=== PATIENT | male | born 1945 | race Caucasian/White ===

== ENCOUNTER → 2017-12-11 | Outpatient (CLI) | payer MEDICARE, BC ==
[~2017-12-11] MED LIST: AMLODIPINE10 MG PO; ASPIRIN E.C. 8181 MG PO; CALCIUM 600-D 61 TAB PO; CALCIUM500 MG PO; CIALIS10 MG PO; COZAAR100 MG PO; GLUCOSAMINE & C1 CA1 PO; GLUCOSAMINE CHO1 CA1 PO; HCTZ 25MG TAB25 MG PO; IBU400 MG PO; LASIX20 MG PO; METFORMIN500 MG PO; NORCO 325 MG-51 TAB PO; PROTONIX40 MG PO; TYLENOL 500MG500 MG PO; ULTRAM 50MG TAB50 MG PO
== END ==
LOC: COL.RAD 12:56
DX: M47.816 Spondylosis without myelopathy or radiculopathy, lumbar region (principal); M99.73 Connective tissue and disc stenosis of intervertebral foramina of lumbar region; M48.061 Spinal stenosis, lumbar region without neurogenic claudication; M51.36 Other intervertebral disc degeneration, lumbar region

== ENCOUNTER → 2018-02-03 | Outpatient (CLI) | payer MEDICARE, BC | LOC: MHCPAIN 08:09 | DX: G89.29 Other chronic pain (principal); M47.817 Spondylosis without myelopathy or radiculopathy, lumbosacral region; M54.16 Radiculopathy, lumbar region; M53.3 Sacrococcygeal disorders, not elsewhere classified; M48.061 Spinal stenosis, lumbar region without neurogenic claudication | CPT/HCPCS: G0463 ==

== ENCOUNTER → 2018-02-04 | Outpatient (CLI) | payer MEDICARE, BC | LOC: MHCPAIN 10:47 | DX: M47.817 Spondylosis without myelopathy or radiculopathy, lumbosacral region (principal); M54.16 Radiculopathy, lumbar region | CPT/HCPCS: J1040; Q9967 ==

== ENCOUNTER → 2018-02-17 | Outpatient (CLI) | payer MEDICARE, BC | LOC: MHCPAIN 07:47 | DX: G89.29 Other chronic pain (principal); M47.817 Spondylosis without myelopathy or radiculopathy, lumbosacral region; M54.16 Radiculopathy, lumbar region; M53.3 Sacrococcygeal disorders, not elsewhere classified; M48.061 Spinal stenosis, lumbar region without neurogenic claudication | CPT/HCPCS: G0463 ==

== ENCOUNTER → 2018-02-25 | Outpatient (CLI) | payer MEDICARE, BC | LOC: MHCPAIN 08:54 | DX: M47.817 Spondylosis without myelopathy or radiculopathy, lumbosacral region (principal) | CPT/HCPCS: J1100; Q9967 ==

== ENCOUNTER → 2018-04-01 | Outpatient (CLI) | payer MEDICARE, BC | LOC: MHCPAIN 09:48 | DX: M47.817 Spondylosis without myelopathy or radiculopathy, lumbosacral region (principal); M54.16 Radiculopathy, lumbar region | CPT/HCPCS: J1040; Q9967 ==

== ENCOUNTER 2018-04-23 08:00 | Outpatient (RCR) | payer MEDICARE, BC | END 2018-05-09 | disposition home or self-care (01) | LOC: WSPT | DX: M48.061 Spinal stenosis, lumbar region without neurogenic claudication (principal); M54.16 Radiculopathy, lumbar region; M47.817 Spondylosis without myelopathy or radiculopathy, lumbosacral region; M53.3 Sacrococcygeal disorders, not elsewhere classified; G89.29 Other chronic pain | CPT/HCPCS: G8978-GP; G8979-GP ==

== ENCOUNTER → 2018-05-10 | Outpatient (CLI) | payer MEDICARE, BC | LOC: MHCPAIN 08:13 | DX: G89.29 Other chronic pain (principal); M47.817 Spondylosis without myelopathy or radiculopathy, lumbosacral region; M54.16 Radiculopathy, lumbar region; M53.3 Sacrococcygeal disorders, not elsewhere classified; M48.061 Spinal stenosis, lumbar region without neurogenic claudication | CPT/HCPCS: G0463 ==

== ENCOUNTER 2018-06-17 08:00 | Outpatient (RCR) | payer MEDICARE, BC | END 2018-06-23 13:40 | disposition home or self-care (01) | LOC: WSPT 08:00 | DX: M48.061 Spinal stenosis, lumbar region without neurogenic claudication (principal); M54.16 Radiculopathy, lumbar region; M47.817 Spondylosis without myelopathy or radiculopathy, lumbosacral region; M53.3 Sacrococcygeal disorders, not elsewhere classified; G89.29 Other chronic pain ==

== ENCOUNTER → 2018-08-04 | Outpatient (CLI) | payer MEDICARE, BC | LOC: MHCPAIN 08:08 | DX: G89.29 Other chronic pain (principal); M47.817 Spondylosis without myelopathy or radiculopathy, lumbosacral region; M54.16 Radiculopathy, lumbar region; M53.3 Sacrococcygeal disorders, not elsewhere classified; M48.061 Spinal stenosis, lumbar region without neurogenic claudication | CPT/HCPCS: G0463 ==

== ENCOUNTER → 2018-11-24 | Outpatient (CLI) | payer MEDICARE, BC | LOC: ZCOL.LAB 17:33 | DX: Z01.812 Encounter for preprocedural laboratory examination (principal) ==

== ENCOUNTER → 2019-01-13 | Outpatient (CLI) | payer MEDICARE, BC | LOC: COL.RAD 09:50 | DX: M48.062 Spinal stenosis, lumbar region with neurogenic claudication (principal); M51.36 Other intervertebral disc degeneration, lumbar region ==

== ENCOUNTER 2019-02-24 08:00 | Outpatient (RCR) | payer MEDICARE, BC | END 2019-03-10 15:24 | disposition home or self-care (01) | LOC: MKS.ESL.PT 08:00 | DX: M48.062 Spinal stenosis, lumbar region with neurogenic claudication (principal); M96.1 Postlaminectomy syndrome, not elsewhere classified ==

== ENCOUNTER → 2019-06-16 | Outpatient (CLI) | payer MEDICARE, BC | LOC: COL.RAD 08:18 | DX: Z13.6 Encounter for screening for cardiovascular disorders (principal); F17.201 Nicotine dependence, unspecified, in remission ==

== ENCOUNTER 2020-01-31 07:26 | Day surgery (SDC) | payer MEDICARE, BC ==
[~2020-01-31] VITALS: Ht 180.3 cm; Wt 92.5 kg
[2020-01-31 08:04] VITALS: BP 128/75; PULSE 107; TEMP 97.5
[2020-01-31] MEDS ORDERED: PROTONIX 40MG T40 MG PO (08:10)
[2020-01-31] MEDS ORDERED: HCTZ 25MG TAB25 MG PO (08:11)
[2020-01-31] MEDS ORDERED: BENICAR40 MG PO (08:11)
[2020-01-31] MEDS ORDERED: CRESTOR20 MG PO (08:12)
[2020-01-31] MEDS ORDERED: NORVASC 10MG10 MG PO (08:12)
[2020-01-31] MEDS ORDERED: GLUCOPHAGE500 MG/TAB PO (08:13)
[2020-01-31] MEDS ORDERED: ASPIRIN E.C. 8181 MG PO (08:14)
[2020-01-31] MEDS ORDERED: VITRUM SENIOR1 TA2 PO (08:14)
[2020-01-31] MEDS ORDERED: OSCAL 500 TAB500 MG PO (08:15)
[2020-01-31] MEDS ORDERED: OSTEO-BI-FLEX 21 TAB PO (08:16)
[2020-01-31] MEDS ORDERED: TYLENOL 500MG500 MG PO (08:18)
--- NOTE | 2020-01-31 08:22 | NUR ---
TO RM AT 0740- CALL LIGHT IN REACH AT BEDSIDE.
[2020-01-31 09:05] VITALS: BP 113/79; PULSE 82; TEMP 97.4
--- NOTE | 2020-01-31 09:05 | NUR ---
TO RM 4 PER CART FROM ENDOSCOPY. AMBULATED WITH 2 ASSIST TO RECLINER. ALERT AND TALKING WITH AND STAFF. DR MARI INTO TALK WITH PATIENT AND HIS .
[2020-01-31 09:20] VITALS: BP 119/74; PULSE 75
--- NOTE | 2020-01-31 09:20 | NUR ---
RECEIVED WATER AND TAKING SIPS.
--- NOTE | 2020-01-31 09:25 | NUR ---
TOLERATED PO WELL. RECEIVED DISCHARGE INSTRUCTIONS AND VERBALIZED UNDERSTANDING. DISCONTINUED IV AND INT- CATHETER INTACT.
--- NOTE | 2020-01-31 09:40 | NUR ---
DISCHARGED PER WC BY NURSING STAFF TO PRIVATE CAR IN CARE OF JUAN MIGUEL.
[2020-01-31 10:35] VITALS: BP 104/62; PULSE 76
== END 2020-01-31 09:54 | disposition home or self-care (01) ==
LOC: SDCO 07:26
DX: D12.4 Benign neoplasm of descending colon (principal); K57.30 Diverticulosis of large intestine without perforation or abscess without bleeding; K64.0 First degree hemorrhoids; K21.9 Gastro-esophageal reflux disease without esophagitis; I10 Essential (primary) hypertension; E11.42 Type 2 diabetes mellitus with diabetic polyneuropathy; M48.00 Spinal stenosis, site unspecified; I25.2 Old myocardial infarction; E78.5 Hyperlipidemia, unspecified; G47.33 Obstructive sleep apnea (adult) (pediatric); G89.29 Other chronic pain; M19.90 Unspecified osteoarthritis, unspecified site; Z86.010 Personal history of colon polyps; Z80.0 Family history of malignant neoplasm of digestive organs; Z90.49 Acquired absence of other specified parts of digestive tract; Z79.82 Long term (current) use of aspirin; Z79.84 Long term (current) use of oral hypoglycemic drugs; Z20.828 Contact with and (suspected) exposure to other viral communicable diseases
CPT/HCPCS: J2704; J7120

== ENCOUNTER → 2021-07-02 | Outpatient (CLI) | payer MEDICARE, BC ==
[~2021-07-02] MED LIST changes: +BENICAR40 MG PO; +CRESTOR20 MG PO; +GLUCOPHAGE500 MG/TAB PO; +NORVASC 10MG10 MG PO; +OSCAL 500 TAB500 MG PO; +OSTEO-BI-FLEX 21 TAB PO; +PROTONIX 40MG T40 MG PO; +VITRUM SENIOR1 TA2 PO
== END ==
LOC: COL.RAD 09:44
DX: N18.30 Chronic kidney disease, stage 3 unspecified (principal)

== ENCOUNTER 2023-02-28 08:03 | Outpatient (RCR) | payer MEDICARE, BC ==
[2023-02-27 09:50] VITALS: BP 97/68; PULSE 95; TEMP 98.3
--- NOTE | 2023-02-27 11:36 | NUR ---
pt tolerated PICC insertion recovery well. pt was assisted to main lobby via wheelchair following procedure and was accompanied by . vital signs remained within normal limits and pt was free from concerns and complaints upon discharge. PICC dressing clean dry and intact upon discharge.
[~2023-02-28] VITALS: Ht 180.3 cm; Wt 96.2 kg
[~2023-02-28 08:03] MED LIST changes: +ASPIRIN 32325 MG/TAB PO; +CELEBREX 200MG200 MG PO; +DOXYCYCLINE 10100 MG PO; +ROXICODONE 55 MG/TAB PO
[2023-02-28 08:14] VITALS: BP 116/61; PULSE 90; TEMP 98.2
[2023-03-01 08:05] VITALS: BP 113/62; PULSE 96; TEMP 97.9
[2023-03-01] MEDS ORDERED: ROCEPHIN 2GM VIAL21 IV (08:08)
[2023-03-02 08:02] VITALS: BP 105/51; PULSE 100; TEMP 98.1
[2023-03-03 08:12] VITALS: BP 150/82; PULSE 89; TEMP 98.1
[2023-03-03 08:22] LABS: HEMOGLOBIN 10.4 g/dl (13.5-18.0); MEAN CELL VOLUME 94 fl (80.0-100.0); MEAN CORPUSCULAR HEMOGLOBIN 33 pg (27-31); MEAN CORPUSCULAR HGB CONC 35 g/dl (33.0-37.0); MEAN PLATELET VOLUME 9.7 fl (7.4-10.4); PLATELET COUNT 303 K/mm3 (130-400); RED BLOOD COUNT 3.19 M/mm3 (4.20-5.60); REDCELL DISTRIBUTION WIDTH-CV 12.7 % (11.5-14.5)
[2023-03-03 08:23] LABS: HEMATOCRIT 29.9 % (42.0-52.0)
[2023-03-03 08:56] LABS: ERYTHROCYTE SEDIMENTATION RATE 102 mm/hr (0-30)
== END 2023-03-03 14:22 ==
LOC: EUO 03-01 08:00
PROVIDERS: Orthopaedic Surgery
DX: Z96.612 Presence of left artificial shoulder joint (principal)
CPT/HCPCS: C1751; J0696

== ENCOUNTER 2023-04-02 08:00 | Outpatient (RCR) | payer MEDICARE, BC ==
[2023-03-04 08:30] VITALS: BP 120/59; PULSE 90; TEMP 97.9
[2023-03-05 07:57] VITALS: BP 130/75; PULSE 90; TEMP 98
[2023-03-06 08:11] VITALS: BP 132/78; PULSE 86; TEMP 98.1
[2023-03-07 08:00] VITALS: BP 146/77; PULSE 86; TEMP 97.9
[2023-03-08 08:02] VITALS: BP 119/68; PULSE 88; TEMP 97.9
[2023-03-09 08:03] VITALS: BP 116/68; PULSE 93; TEMP 97.8
[2023-03-09 08:15] LABS: BASO # 0.1 K/mm3 (0.0-0.2); BASO % 0.6 % (0.0-2.0); EOS # 0.2 K/mm3 (0.0-0.7); EOS % 3.1 % (0.0-4.0); GRAN # 5.4 K/mm3 (1.4-6.5); GRAN % 69.2 % (42.2-75.2); HEMOGLOBIN 11.1 g/dl (13.5-18.0); LYMPH # 1.5 K/mm3 (1.2-3.4); LYMPH % 18.9 % (20.0-51.0); MEAN CELL VOLUME 97 fl (80.0-100.0); MEAN CORPUSCULAR HEMOGLOBIN 33 pg (27-31); MEAN CORPUSCULAR HGB CONC 34 g/dl (33.0-37.0); MONO # 0.6 K/mm3 (0.1-0.6); MONO % 7.7 % (1.7-9.3); PLATELET COUNT 311 K/mm3 (130-400); RED BLOOD COUNT 3.38 M/mm3 (4.20-5.60); REDCELL DISTRIBUTION WIDTH-CV 14.2 % (11.5-14.5)
[2023-03-09 08:16] LABS: HEMATOCRIT 32.8 % (42.0-52.0)
[2023-03-09 08:53] LABS: ERYTHROCYTE SEDIMENTATION RATE 40 mm/hr (0-30)
[2023-03-10 08:02] VITALS: BP 124/72; PULSE 85; TEMP 97.9
[2023-03-11 08:06] VITALS: BP 130/76; PULSE 91; TEMP 97.9
[2023-03-12 09:14] VITALS: BP 120/73; PULSE 101; TEMP 98.4
[2023-03-13 07:47] VITALS: BP 104/72; PULSE 90; TEMP 98.2
[2023-03-14 07:56] VITALS: BP 123/68; PULSE 87; TEMP 98.5
[2023-03-15 08:29] VITALS: BP 151/84; PULSE 90; TEMP 97.6
[2023-03-16 08:01] VITALS: BP 128/64; PULSE 86; TEMP 97.9
[2023-03-16 08:23] LABS: BASO % 0.5 % (0.0-2.0); EOS # 0.2 K/mm3 (0.0-0.7); EOS % 2.3 % (0.0-4.0); GRAN # 5.4 K/mm3 (1.4-6.5); GRAN % 73.5 % (42.2-75.2); HEMOGLOBIN 12.3 g/dl (13.5-18.0); LYMPH # 1.1 K/mm3 (1.2-3.4); LYMPH % 15.1 % (20.0-51.0); MEAN CELL VOLUME 99 fl (80.0-100.0); MEAN CORPUSCULAR HEMOGLOBIN 33 pg (27-31); MEAN CORPUSCULAR HGB CONC 33 g/dl (33.0-37.0); MEAN PLATELET VOLUME 9.7 fl (7.4-10.4); MONO # 0.6 K/mm3 (0.1-0.6); MONO % 8.2 % (1.7-9.3); PLATELET COUNT 209 K/mm3 (130-400); RED BLOOD COUNT 3.75 M/mm3 (4.20-5.60); REDCELL DISTRIBUTION WIDTH-CV 14.3 % (11.5-14.5)
[2023-03-16 09:13] LABS: ERYTHROCYTE SEDIMENTATION RATE 28 mm/hr (0-30)
[2023-03-17 07:56] VITALS: BP 145/81; PULSE 92; TEMP 97.9
[2023-03-18 07:53] VITALS: BP 141/61; PULSE 90; TEMP 98
[2023-03-19 07:58] VITALS: BP 177/82; PULSE 73; TEMP 98.2
[2023-03-20 07:54] VITALS: BP 162/76; PULSE 75; TEMP 98.1
[2023-03-21 08:15] VITALS: BP 138/78; PULSE 72; TEMP 98
[2023-03-22 08:01] VITALS: BP 137/77; PULSE 86; TEMP 98.2
[2023-03-23 07:55] VITALS: BP 142/59; PULSE 88; TEMP 98.4
[2023-03-23 08:10] LABS: BASO % 0.7 % (0.0-2.0); EOS # 0.1 K/mm3 (0.0-0.7); EOS % 2.2 % (0.0-4.0); GRAN # 3.9 K/mm3 (1.4-6.5); GRAN % 66.3 % (42.2-75.2); HEMATOCRIT 39.3 % (42.0-52.0); HEMOGLOBIN 13.3 g/dl (13.5-18.0); LYMPH # 1.3 K/mm3 (1.2-3.4); LYMPH % 21.4 % (20.0-51.0); MEAN CELL VOLUME 96 fl (80.0-100.0); MEAN CORPUSCULAR HEMOGLOBIN 33 pg (27-31); MEAN CORPUSCULAR HGB CONC 34 g/dl (33.0-37.0); MEAN PLATELET VOLUME 10.2 fl (7.4-10.4); MONO # 0.5 K/mm3 (0.1-0.6); MONO % 9.1 % (1.7-9.3); PLATELET COUNT 198 K/mm3 (130-400); RED BLOOD COUNT 4.08 M/mm3 (4.20-5.60); REDCELL DISTRIBUTION WIDTH-CV 13.7 % (11.5-14.5)
--- NOTE | 2023-03-23 08:35 | NUR ---
AFTER DRAWING PATIENT'S BLOOD FOR LAB WORK, THE LABORATORY CALLED STATING THAT THEY ARE CURRENTLY UNABLE TO RUN SED. RATES. THIS INFORMATION WAS PASSED ALONG TO DR HAGEN'S OFFICE AT 0830 THIS MORNING.
[2023-03-24 08:00] VITALS: BP 122/74; PULSE 81
[2023-03-25 07:54] VITALS: BP 137/80; PULSE 92; TEMP 98.2
[2023-03-26 07:57] VITALS: BP 137/71; PULSE 73; TEMP 98
[2023-03-27 08:11] VITALS: BP 144/75; PULSE 76; TEMP 98.2
[2023-03-28 08:11] VITALS: BP 155/78; PULSE 85; TEMP 98.5
[2023-03-29 08:02] VITALS: BP 123/72; PULSE 85; TEMP 98.2
[2023-03-30 08:05] VITALS: BP 117/60; PULSE 84; TEMP 98.1
--- NOTE | 2023-03-30 08:22 | NUR ---
Pt did not get labs drawn today in the [facility]. Pt states he will be getting labs drawn at [facility] today at 9.
[2023-03-31 07:56] VITALS: BP 124/69; PULSE 76; TEMP 98.2
[2023-04-01 08:06] VITALS: BP 150/76; PULSE 94; TEMP 97.9
[~2023-04-02] VITALS: Ht 180.3 cm; Wt 92.0 kg
[~2023-04-02 08:00] MED LIST changes: +ASPI325T6 PO; -ASPIRIN 32325 MG/TAB PO; +ROCEPHIN 2GM VIAL21 IV
[2023-04-02 08:03] VITALS: BP 119/78; PULSE 77; TEMP 98.4
--- NOTE | 2023-04-02 09:23 | NUR ---
Drainage was noted around dressing by Express Nurse Gladis. She request AIVS look at it and decide if dressing needed changed. Dressing was yellow fron drainage. Dressing removed. Skin noted to be irritated under the statlock. Redness and swelling noted. Insertion site is clean and free of s/s of infection. Inisertion site and skin around cleaned well with Chloraprep. PICC secured in a different location to allow previous site to rest. Gladis MEDINA notified of change.
[2023-04-03] MEDS ORDERED: IRON TABLETS325 MG PO (07:57)
[2023-04-03] MEDS ORDERED: VITAMIN C500 MG PO (07:57)
[2023-04-03] MEDS ORDERED: FOLIC ACID 11 MG/TA1 PO (07:58)
[2023-04-03] MEDS ORDERED: PROBIOTIC BLEN1 EACH PO (08:00)
[2023-04-03] MEDS ORDERED: COLACE 100100 MG/CAP PO (08:01)
== END 2023-04-02 11:08 | disposition home or self-care (01) ==
LOC: EUO 08:00
PROVIDERS: Orthopaedic Surgery
DX: Z96.642 Presence of left artificial hip joint (principal)
CPT/HCPCS: J0696

== ENCOUNTER 2023-04-10 08:00 | Outpatient (RCR) | payer MEDICARE, BC ==
[2023-04-03 07:52] VITALS: BP 136/81; PULSE 86; TEMP 97.9
[2023-04-04 08:02] VITALS: BP 148/78; PULSE 90; TEMP 98.3
[2023-04-05 07:44] VITALS: BP 152/75; PULSE 78; TEMP 97.6
[2023-04-06 08:01] VITALS: BP 137/81; PULSE 77; TEMP 97.9
[2023-04-07 07:59] VITALS: BP 138/71; PULSE 75; TEMP 98.2
[2023-04-08 07:53] VITALS: BP 131/73; PULSE 83; TEMP 98.3
[2023-04-09 07:24] VITALS: BP 150/84; PULSE 77; TEMP 97.8
[~2023-04-10] VITALS: Ht 180.3 cm; Wt 92.6 kg
[2023-04-10 07:59] VITALS: BP 139/72; PULSE 72; TEMP 97.9
[~2023-04-10 08:00] MED LIST changes: +COLACE 100100 MG/CAP PO; +FOLIC ACID 11 MG/TA1 PO; +IRON TABLETS325 MG PO; +PROBIOTIC BLEN1 EACH PO; +VITAMIN C500 MG PO
--- NOTE | 2023-04-10 08:44 | NUR ---
Pt remained supine 30 mins post PICC removal. Dressing remains clean, dry and intact and respirations are even and unlabored. Pt is free of complaints. He is able to transfer self from bed to wheelchair. PICC DC instruction sheet reviewed with pt and . Both express understanding. denies need for assistance and takes pt out via wheelchair with belongings.
== END 2023-04-10 08:46 | disposition home or self-care (01) ==
LOC: EUO 08:00
DX: Z96.642 Presence of left artificial hip joint (principal)
CPT/HCPCS: J0696